=== PATIENT | male | born 1960 | race Caucasian/White ===

== ENCOUNTER 2017-10-12 21:40 | Inpatient (IN) | payer OTHER ==
[~2017-10-12] VITALS: Ht 175.2 cm; Wt 88.0 kg
[~2017-10-12 21:40] MED LIST: ACETAMINOPHEN-H1 TA2 PO; ANAPROX DS550 MG PO; ATIVAN1 MG PO; COMPAZINE10 MG PO; DOXYCYCLINE HY100 M3 PO; MEDROL DOSEPAK4 MG PO; MUCINEX ER600 MG PO; PCE500 MG PO; PEPCID20 MG PO; PREDNISONE10 MG PO; TRAMADOL HCL50 MG PO; VENTOLIN H0.09 MG/AC INH; VIBRAMYCIN100 MG PO; VICODIN 5/500 505 MG PO; VICODIN ES 7501 TAB PO; WELLBUTRIN XL300 MG PO; ZANTAC150 MG PO; ZOFRAN ODT8 MG PO
[2017-10-12 21:41] VITALS: BP 139/85
[2017-10-12 22:42] LABS: BASO # 0.1 10*3/uL (0.0-0.1); BASO % 0.3 % (0.0-1.0); EOS # 0.2 10*3/uL (0.0-0.4); EOS % 1.4 % (1.0-4.0); HEMOGLOBIN 13.5 g/dl (14.0-18.0); LYMPH # 1.9 10*3/uL (1.3-4.4); LYMPH % 11.8 % (27.0-41.0); MEAN CELL VOLUME 91.5 fl (80.0-94.0); MEAN CORPUSCULAR HGB 30.1 pg (27.0-31.0); MEAN CORPUSCULAR HGB CONC 32.9 g/dl (33.0-37.0); MEAN PLATELET VOLUME 9.7 fl (9.6-12.3); MONO # 1.2 10*3/uL (0.1-1.0); MONO % 7.5 % (3.0-9.0); NEUT # 12.7 10*3/uL (2.3-7.9); NEUT % 78.3 % (47.0-73.0); PLATELET COUNT AUTOMATED 265 10*3/uL (130-400); RED BLOOD COUNT 4.48 10*6/uL (4.50-5.90); RED CELL DISTRI WIDTH 13.7 % (0-14.5); WHITE BLOOD COUNT 16.3 10*3/uL (4.8-10.8)
[2017-10-12 23:01] LABS: ALBUMIN 4.1 gm/dl (3.1-4.5); ALKALINE PHOSPHATASE 72 U/L (45-117); BUN 21 mg/dl (7-24); CHLORIDE 102 mmol/L (98-107); CREATININE 0.97 mg/dL (0.70-1.30); POTASSIUM 3.7 mmol/L (3.5-5.1); SGOT/AST 18 IU/L (3-35); SGPT/ALT 29 U/L (12-78); SODIUM 136 mmol/L (136-145); TOTAL PROTEIN 7.9 gm/dL (6.4-8.2)
[2017-10-12 23:03] LABS: TROPONIN I < 0.015 ng/ml (<0.045)
[2017-10-12 23:44] VITALS: BP 131/74
[2017-10-13] MEDS ORDERED: PRILOSEC20 M1 PO
[2017-10-13 00:15] VITALS: BP 137/87
[2017-10-13 02:13] LABS: BILIRUBIN NEGATIVE (NEGATIVE); BLOOD NEGATIVE (NEGATIVE); CLARITY CLEAR (CLEAR); COLOR YELLOW (YELLOW); GLUCOSE NEGATIVE (NEGATIVE); KETONE NEGATIVE (NEGATIVE); LEUKO ESTERASE NEGATIVE (NEGATIVE); NITRITE NEGATIVE (NEGATIVE); PH 5.5 (5.0-9.0); UROBILINOGEN 0.2 E.U./dl (0.2-1.0)
[2017-10-13 02:25] LABS: WBC 0-2 wbc/hpf (0-5)
[2017-10-13 04:24] VITALS: BP 140/82
[2017-10-13 04:37] LABS: BASO # 0.1 10*3/uL (0.0-0.1); BASO % 0.4 % (0.0-1.0); EOS # 0.2 10*3/uL (0.0-0.4); EOS % 1.6 % (1.0-4.0); HEMATOCRIT 39.1 % (42.0-52.0); HEMOGLOBIN 12.7 g/dl (14.0-18.0); LYMPH # 1.7 10*3/uL (1.3-4.4); MEAN CELL VOLUME 93.3 fl (80.0-94.0); MEAN CORPUSCULAR HGB 30.3 pg (27.0-31.0); MEAN CORPUSCULAR HGB CONC 32.5 g/dl (33.0-37.0); MEAN PLATELET VOLUME 9.8 fl (9.6-12.3); MONO % 7.2 % (3.0-9.0); NEUT # 10.9 10*3/uL (2.3-7.9); NEUT % 78.3 % (47.0-73.0); PLATELET COUNT AUTOMATED 233 10*3/uL (130-400); RED BLOOD COUNT 4.19 10*6/uL (4.50-5.90); RED CELL DISTRI WIDTH 13.8 % (0-14.5)
[2017-10-13 05:10] LABS: ALBUMIN 3.6 gm/dl (3.1-4.5); ALKALINE PHOSPHATASE 60 U/L (45-117); BUN 15 mg/dl (7-24); CHLORIDE 108 mmol/L (98-107); CREATININE 0.78 mg/dL (0.70-1.30); PHOSPHOROUS 2.8 mg/dL (2.5-4.9); POTASSIUM 3.6 mmol/L (3.5-5.1); SGOT/AST 14 IU/L (3-35); SGPT/ALT 23 U/L (12-78); SODIUM 140 mmol/L (136-145); TOTAL PROTEIN 6.9 gm/dL (6.4-8.2)
[2017-10-13 07:11] LABS: VITAMIN D, 25-HYDROXY 11.8 ng/mL (30-100)
[2017-10-13 08:00] VITALS: BP 138/82
[2017-10-13 12:00] VITALS: BP 138/86
[2017-10-13 16:00] VITALS: BP 142/84
[2017-10-13 20:00] VITALS: BP 145/90
[2017-10-14] VITALS: BP 126/74
[2017-10-14 08:00] VITALS: BP 133/85
[2017-10-14] MEDS ORDERED: CLEOCIN150 MG PO (11:11)
== END 2017-10-14 12:22 | disposition home or self-care (01) | DRG 872 ==
LOC: ED 21:40 → EDHOLD 23:26 → 5E 23:26
PROVIDERS: Internal Medicine Hospice and Palliative Medicine; Physician Assistant
DX: A41.9 Sepsis, unspecified organism (principal); F33.9 Major depressive disorder, recurrent, unspecified; L02.11 Cutaneous abscess of neck; F17.210 Nicotine dependence, cigarettes, uncomplicated; F10.10 Alcohol abuse, uncomplicated; D64.9 Anemia, unspecified; E55.9 Vitamin D deficiency, unspecified; K21.9 Gastro-esophageal reflux disease without esophagitis; R07.9 Chest pain, unspecified; Z98.42 Cataract extraction status, left eye; Z79.899 Other long term (current) drug therapy; Z91.041 Radiographic dye allergy status; Z71.6 Tobacco abuse counseling; Z91.013 Allergy to seafood; Z83.3 Family history of diabetes mellitus; Z80.42 Family history of malignant neoplasm of prostate; Z82.0 Family history of epilepsy and other diseases of the nervous system; Z82.49 Family history of ischemic heart disease and other diseases of the circulatory system

== ENCOUNTER → 2020-09-06 | Outpatient (CLI) | payer OTHER ==
[~2020-09-06] MED LIST changes: +CLEOCIN150 MG PO; +FISH OIL 1,4001 EACH PO; +PRAVACHOL40 MG PO; +PRILOSEC20 M1 PO; +SILDENAFIL20 M1 PO; +XALATAN 0.005%2.5 ML INTRAOC
== END | disposition home or self-care (01) ==
LOC: CARD 02:52
PROVIDERS: ATTEND Family Medicine
DX: R07.9 Chest pain, unspecified (principal)

== ENCOUNTER 2024-06-04 10:15 | Emergency (ER) | payer OTHER ==
[~2024-06-04] VITALS: Ht 175.2 cm; Wt 72.6 kg
[2024-06-04] MEDS ORDERED: Ondansetron Hydrochloride 4 MG/2 ML VIAL IV ONE (10:45)
[2024-06-04] MEDS ORDERED: SODIUM CHLORIDE 0.9% 1,000 ML IV ONE (10:45)
[2024-06-04] MEDS ORDERED: Ketorolac Tromethamine 15 MG/ML VIAL IV ONE (10:45)
[2024-06-04] MEDS ORDERED: MORPHINE Sulfate 2 MG/ML SYR IV ONE (10:45)
[2024-06-04 11:05] LABS: BASO # 0.1 10*3/uL (0.0-0.1); BASO % 0.6 % (0.0-1.0); EOS # 0.3 10*3/uL (0.0-0.4); EOS % 2.8 % (1.0-4.0); HEMATOCRIT 34.5 % (42.0-52.0); MEAN CELL VOLUME 95.3 fl (80.0-94.0); MEAN CORPUSCULAR HGB 30.4 pg (27.0-31.0); MEAN CORPUSCULAR HGB CONC 31.9 g/dl (33.0-37.0); MEAN PLATELET VOLUME 9.5 fl (9.6-12.3); MONO # 1.1 10*3/uL (0.1-1.0); NEUT % 71.8 % (47.0-73.0); PLATELET COUNT AUTOMATED 412 10*3/uL (130-400); RED BLOOD COUNT 3.62 10*6/uL (4.50-5.90); WHITE BLOOD COUNT 11.2 10*3/uL (4.8-10.8)
[2024-06-04 11:26] LABS: ALKALINE PHOSPHATASE 418 U/L (46-116); BUN 10 mg/dl (9-23); CHLORIDE 102 mmol/L (98-107); LIPASE 36 U/L (12-53); POTASSIUM 4.3 mmol/L (3.4-5.1); SGPT/ALT 106 U/L (5-49); TOTAL PROTEIN 7.4 gm/dL (6.0-8.0)
[2024-06-04] MEDS ORDERED: Piperacillin Sodium/Tazobact 50 ML IV ONE (11:40)
[2024-06-04] MEDS ORDERED: PERCOCET 5-3251 EACH PO (11:47)
[2024-06-04] MEDS ORDERED: AMOX-CLAV 875-1 EACH PO (11:47)
== END 2024-06-04 12:46 | disposition home or self-care (01) ==
LOC: ED 10:15
PROVIDERS: Emergency Medicine
DX: R10.32 Left lower quadrant pain (principal); R17 Unspecified jaundice; F32.A Depression, unspecified; F41.9 Anxiety disorder, unspecified; K21.9 Gastro-esophageal reflux disease without esophagitis; F17.200 Nicotine dependence, unspecified, uncomplicated; Z91.041 Radiographic dye allergy status; Z91.013 Allergy to seafood; Z90.89 Acquired absence of other organs; Z98.890 Other specified postprocedural states

== ENCOUNTER 2024-10-02 13:32 | Emergency (ER) | payer OTHER ==
[~2024-10-02] VITALS: Ht 175.2 cm; Wt 64.0 kg
[~2024-10-02 13:32] MED LIST changes: +AMOX-CLAV 875-1 EACH PO; +PERCOCET 5-3251 EACH PO
[2024-10-02] MEDS ORDERED: HYDROmorphONE Hydrochloride 0.5 MG/0.5 ML SYRINGE IV ONE (14:20)
[2024-10-02 14:25] LABS: BASO % 0.5 % (0.0-1.0); EOS # 0.1 10*3/uL (0.0-0.4); EOS % 0.9 % (1.0-4.0); HEMATOCRIT 31.2 % (42.0-52.0); MEAN CELL VOLUME 85.5 fl (80.0-94.0); MEAN PLATELET VOLUME 9.6 fl (9.6-12.3); MONO # 0.9 10*3/uL (0.1-1.0); MONO % 10.8 % (3.0-9.0); NEUT # 5.8 10*3/uL (2.3-7.9); NEUT % 72.2 % (47.0-73.0); PLATELET COUNT AUTOMATED 479 10*3/uL (130-400); RED BLOOD COUNT 3.65 10*6/uL (4.50-5.90); RED CELL DISTRI WIDTH 16.3 % (0-14.5)
[2024-10-02] MEDS ORDERED: SODIUM CHLORIDE 0.9% 1,000 ML IV ONE (14:35)
[2024-10-02 14:41] LABS: BUN 9 mg/dl (9-23); CHLORIDE 97 mmol/L (98-107); POTASSIUM 3.5 mmol/L (3.4-5.1); SGPT/ALT 140 U/L (5-49); TOTAL PROTEIN 7.5 gm/dL (6.0-8.0)
[2024-10-02 14:42] LABS: ALKALINE PHOSPHATASE 536 U/L (46-116)
[2024-10-02 15:00] LABS: BILIRUBIN 3+ (Negative); BLOOD Negative (Negative); CLARITY Clear (Clear); GLUCOSE Trace (Negative); KETONE Negative (Negative); LEUKO ESTERASE 1+ (Negative); NITRITE Positive (Negative)
[2024-10-02 15:24] LABS: COLOR Dark Yellow (Yellow); MUCOUS 1+; RBC 0-2 rbc/hpf (0-2)
== END 2024-10-02 21:07 | disposition short-term general hospital (02) ==
LOC: ED 13:32
PROVIDERS: Nurse Practitioner
DX: K83.1 Obstruction of bile duct (principal); C49.9 Malignant neoplasm of connective and soft tissue, unspecified; R17 Unspecified jaundice; F17.210 Nicotine dependence, cigarettes, uncomplicated; Z91.041 Radiographic dye allergy status; Z91.013 Allergy to seafood; Z98.890 Other specified postprocedural states; Z90.89 Acquired absence of other organs